=== PATIENT | female | born 1990 | race Caucasian/White ===

== ENCOUNTER 2017-10-29 10:02 | Inpatient (IN) ==
[2017-10-29] MEDS ORDERED: CITRIC ACID/SODIUM CITRATE 30ml PO ONE (10:16)
[2017-10-29] MEDS ORDERED: NOZIN NASAL SWAB NAS ONE (10:16)
[2017-10-29] MEDS ORDERED: FAMOTIDINE PB 20 MG/50 ML BAG IV ONE (10:16)
[2017-10-29] MEDS ORDERED: CEFAZOLIN PREMIX (MC ONLY) 2 GM/50 ML BAG IV ONE (10:16)
[2017-10-29 10:42] VITALS: BMI 24.0
[2017-10-29] MEDS: LR 1,000 ML IV SCH ×3 (11:03→13:32)
[2017-10-29] MEDS ORDERED: OXYTOCIN BOLUS BAG 30 UNIT/500 ML ML IV SCH (12:00)
[2017-10-29] MEDS ORDERED: FentaNYL 250 MCG/5 ML INJECTION ONE (12:35)
[2017-10-29] MEDS ORDERED: LIDOCAINE 2% (100mg/5mL) 5ml PF SDV ONE (12:35)
[2017-10-29] MEDS ORDERED: BUPIVACAINE 0.75%/DEXTROSE 8.5% SPINAL 2 ML AMPULE IJ ONE (12:35)
[2017-10-29] MEDS ORDERED: MORPHINE SULFATE PF 5mg/10ml INJ (Duramorph) ONE (12:35)
[2017-10-29] MEDS ORDERED: SALINE FLUSH 10ml SYRINGE ONE (12:36)
[2017-10-29] MEDS ORDERED: EPHEDRINE 50mg/ml INJECTION ONE (12:36)
--- NOTE | 2017-10-29 13:28 | Anesthesia Preoperative Report ---
Anesthesia Preoperative Record - Date and Time Date: 10/29/17 Preoperative Diagnosis: C section NPO Since Date: 10/28/17 NPO Since Time: 23:00 Allergies/Adverse Reactions: Allergies Allergy/AdvReac Type Severity Reaction Status Date / Time Sulfa (Sulfonamide Allergy Intermediate Blister Verified 10/29/17 10:39 Antibiotics) - Vital Signs Vital Signs: Temperature 98.3 F 10/29/17 11:27 Pulse Rate 82 10/29/17 11:27 Respiratory Rate 16 10/29/17 11:27 Blood Pressure 108/66 10/29/17 11:27 Pulse Oximetry 98 10/29/17 11:27 Height and Weight: Height 5 ft 4 in Weight 63.6 kg Body Mass Index 24.0 - Medications Inpatient Medications: Current Medications Lactated Ringer's (Lactated Ringers) 1,000 mls @ 150 mls/hr IV .Q6H40M CHAD Last Admin: 10/29/17 12:09 Dose: 150 mls/hr Home Medications: Home Medications Medication Instructions Recorded Confirmed Type Famotidine [Pepcid] 1 tab PO PRN PRN 10/24/17 10/29/17 History Vit Calc,Iron,Folic 1 each PO DAILY 10/24/17 10/29/17 History [ Vitamins] Is Patient on Beta Bulmaro?: No - Medical History Respiratory: Reports: Asthma (exercise induced) Gastrointestional: Reports: Gastroesophageal Reflux Disease, Other (IBS) Neuro/Musculoskeletal: Reports: Headaches, Neuromuscular Disorder (scoliosis) Other History: Reports: Now - Surgical History GI Surgery/Treatments: Reports: Colonoscopy, EGD Musculoskeletal Surgery/Tx: Reports: Other (IT band RELEASE) Anesthesia Reactions: None Hx Family Anesthesia Reaction: No History of Motion Sickness: No - Social History Smoking Status: Never smoker - Pertinent Findings Laboratory: CBC and BMP 10/29/17 10:55 - Physical Exam Respiratory Exam: Present: lungs clear, bilateral breath sounds equal Cardiovascular Exam: Present: regular rate and rhythm - Airway Assessment Mallampati Score: II TMD: 3 Fingerbreadths Neck Extension: good Overall Assessment: may be difficult mask vent, may be difficult intubation - ASA ASA Score: 2 - Plan Regional/Trunk Block: Spinal - Discussion Discussion: Discussed risks/options/alternatives of anesthesia and questions answered. Patient consents. Nursing pain assessment noted. Present for Discussion: spouse Attestation Statement: Prior to the delivery of any anesthetic medication, I examined the patient, developed the plan, obtained the patient's consent and discussed the risk and benefits of the procedure with the patient/guardian. - Additional Information Seen by Anesthesia: Yes
[2017-10-29] MEDS ORDERED: NALOXONE 2 MG/2 ML INJECTION PFS IVP PRN (13:29)
[2017-10-29] MEDS ORDERED: HYDROCODONE/APAP 5mg/325mg TABLET PO PRN (13:35)
[2017-10-29] MEDS ORDERED: DiphenhydrAMINE 25 MG CAPSULE PO PRN (13:35)
[2017-10-29] MEDS ORDERED: HYDROCORTISONE 2.5% CREAM 30gm RECTALLY PRN (13:35)
[2017-10-29] MEDS ORDERED: SIMETHICONE 80 MG CHEWABLE TABLET PO PRN (13:35)
[2017-10-29] MEDS ORDERED: ACETAMINOPHEN 500 MG TABLET PO PRN (13:35)
[2017-10-29] MEDS ORDERED: CALCIUM CARBONATE Chewable 500mg TABLET PO PRN (13:35)
[2017-10-29] MEDS ORDERED: OXYTOCIN DRIP 30 UNIT/500 ML ML IV SCH (13:45)
[2017-10-29] MEDS: D5LR 1,000 ML IV SCH (14:14)
[2017-10-29] MEDS: IBUPROFEN 800 MG TABLET PO PRN (16:27)
--- NOTE | 2017-10-29 17:02 | Operative Note ---
Operative Note - Date of Operation Date of Operation: 10/29/17 - General : 1 Estimated or Known Gestational Age (weeks): 38 Estimated or Known Gestational Age (days): 3 - Preoperative Diagnosis Other (Breech presentation) Preoperative Diagnosis: Poor growth - Postoperative Diagnosis same as preoperative - Procedure Primary, Low-transverse - Surgeon Surgeon: Janee Waller MD - Blacking Wheel Tender OB Blacking Wheel Tender: Raudel Blunt MD - Anesthesia Anesthesia Provider: Matthew Nash CRNA Anesthesia Type: Spinal - Complications Complications: None - Estimated Blood Loss Estimated Blood Loss:: 800 - Findings Findings: viable female, clear fluids, normal uterus, normal adenexa, Samuel breech - APGARS : 8,9 - Weight Weight (grams): 2964 - [place] Name Name: Levi - Description of Procedure Description of Procedure: The patient was taken to the operating room where anesthesia was obtained. She was placed in the dorsal supine position with a leftward tilt. A Ferreira catheter was placed. She was prepared and draped in the normal sterile fashion. A Pfannenstiel incision was created 2 cm above the symphysis pubis and carried down to the fascia. The fascia was incised in the midline with the scalpel and then extended laterally with the Roland scissors. The fascia was elevated, and the underlying rectus muscles were dissected off. The peritoneum was entered bluntly. This was extended superiorly and inferiorly with good visualization of the bladder. The bladder blade was inserted. A bladder flap was created sharply. The lower uterine segment was incised in a transverse fashion [id number] with the scalpel and bluntly extended. The membranes were ruptured. The breech was delivered up to the level of the scapula. The arms were swept down and out. The body was lifted, and the head delivered atraumatically. The nose and mouth were suctioned. The cord was clamped and cut. The infant was handed to Dr. Good who was asked to attend the delivery due to breech. The placenta delivered spontaneously. The uterus was exteriorized and cleared of all clots and debris. The uterus was closed with running, locked 0-monocryl. A second layer was placed to imbricate the incision. Hemostasis was obtained on the serosal edges with cautery. The bladder flap was closed with 3-0 vicryl. The uterus was returned to the abdomen. The gutters were cleared of all clots and debris. The uterine incision was inspected one final time and still noted to be hemostatic. The peritoneum was closed with running 2-0 vicryl. Hemostasis was obtained in the rectus muscles with the cautery. The fascia was closed with running 0-vicryl. Hemostasis was obtained in the subcutaneous tissue with the cautery. The skin was closed with 4-0 vicryl in a subcuticular manner. Steri- strips were placed. Sponge, sharp, and instrument counts were correct. The patient tolerated the procedure well and was taken to the recovery room in good condition.
[2017-10-29] MEDS: SIMETHICONE 80 MG CHEWABLE TABLET PO SCH (21:22)
[2017-10-29] MEDS: NOZIN NASAL SWAB NAS SCH (21:22)
[2017-10-30] MEDS: SIMETHICONE 80 MG CHEWABLE TABLET PO SCH ×5 (01:28→20:31)
[2017-10-30] MEDS: IBUPROFEN 800 MG TABLET PO PRN ×3 (01:28→17:41)
[2017-10-30] MEDS: D5LR 1,000 ML IV SCH (01:50)
--- NOTE | 2017-10-30 08:11 | OB/GYN Progress Note ---
OB-PP Progress Note - General POD:: POD1 - Subjective Date: 10/30/17 Lochia: Moderate Pain: controlled Voiding: voiding Nausea or Vomiting Present: No - Objective Vital Signs: Last Vital Signs Temp 96.8 F 10/30/17 04:43 Pulse 62 10/30/17 04:43 Resp 20 10/30/17 04:43 BP 89/55 10/30/17 04:43 Pulse Ox 99 10/30/17 04:43 Urine Output: good General: alert and oriented Abdomen: fundus firm Incision: clean, dry, intact Extremities: non-tender Edema: none Laboratory: Laboratory Results - last 24 hr 10/29/17 10/29/17 10/29/17 10:55 10:55 18:16 WBC 9.9 16.0 H D RBC 3.76 L 3.66 L Hgb 11.4 L 11.2 L Hct 34.2 L 33.3 L MCV 91.0 91.0 MCH 30.3 30.6 MCHC 33.3 33.6 RDW Std Deviation 42.8 42.3 Plt Count 215 177 MPV 11.0 10.8 Immature Gran % (Auto) 0.5 Neut % (Auto) 77.2 H Lymph % (Auto) 16.5 L Surry % (Auto) 4.8 Eos % (Auto) 0.7 Baso % (Auto) 0.3 Neut # (Auto) 7.6 Lymph # (Auto) 1.6 Surry # (Auto) 0.5 Eos # (Auto) 0.1 Baso # (Auto) 0.0 Abs Immat Gran (auto) 0.05 H Blood Type O Positive Antibody Screen Negative - Assessment Assessment: Primary C/S - Plan Plan: routine care
[2017-10-30] MEDS: DOCUSATE CALCIUM 240 MG CAPSULE PO SCH (09:07)
[2017-10-30] MEDS: NOZIN NASAL SWAB NAS SCH ×2 (09:08→15:19)
[2017-10-30 21:49] VITALS: RESP 16
[2017-10-31] MEDS: NOZIN NASAL SWAB NAS SCH (01:04)
[2017-10-31] MEDS: IBUPROFEN 800 MG TABLET PO PRN ×2 (01:42→09:06)
--- NOTE | 2017-10-31 07:30 | OB/GYN Progress Note ---
OB-PP Progress Note - General PPD2 Maternal Group B Strep: Negative Maternal blood type: O+ Maternal Rubella Status: Immune - Subjective Date: 10/31/17 Lochia: Minimal Pain: controlled Voiding: voiding - Objective Vital Signs: Last Vital Signs Temp 97.7 F 10/31/17 01:35 Pulse 59 L 10/31/17 01:35 Resp 16 10/31/17 01:35 BP 97/61 10/31/17 01:35 Pulse Ox 100 10/31/17 01:35 General: alert and oriented Abdomen: fundus firm, non-tender Incision: clean, dry, intact Extremities: non-tender - Assessment Assessment: Primary C/S - Plan Plan: routine care, discharge home, continue PNV
[2017-10-31] MEDS: DOCUSATE CALCIUM 240 MG CAPSULE PO SCH (09:06)
[2017-10-31] MEDS: SIMETHICONE 80 MG CHEWABLE TABLET PO SCH (09:07)
[2017-10-31 10:23] VITALS: BP 95/60; PULSE 62; TEMP 98; O2SAT 98
== END 2017-10-31 10:00 | disposition home or self-care (01) | DRG 765 ==
LOC: MC 10:02
PROVIDERS: ADMIT Obstetrics & Gynecology; ATTEND Obstetrics & Gynecology